=== PATIENT | male | born 1960 | race African-American/Black ===

== ENCOUNTER 2016-09-28 06:12 | Emergency (ER) | payer MEDICARE ==
[~2016-09-28 06:12] MED LIST: ACET500CAP PO; EZFE 200200 MG PO; GLUCPH PO; IBU800 PO; IMDUR60 PO; KDUR20 PO; LEVAQUIN750 MG PO; LOP100 PO; MEVACOR PO; NORV10 PO; VITD PO; ZESTORETIC PO
== END 2016-09-28 06:15 | disposition home or self-care (01) ==
LOC: ER 06:12
DX: H10.9 Unspecified conjunctivitis (principal); J06.9 Acute upper respiratory infection, unspecified; F17.200 Nicotine dependence, unspecified, uncomplicated; E11.9 Type 2 diabetes mellitus without complications; E78.5 Hyperlipidemia, unspecified; I25.10 Atherosclerotic heart disease of native coronary artery without angina pectoris; Z95.5 Presence of coronary angioplasty implant and graft; Z87.01 Personal history of pneumonia (recurrent); I10 Essential (primary) hypertension; Z86.73 Personal history of transient ischemic attack (TIA), and cerebral infarction without residual deficits; Z79.899 Other long term (current) drug therapy; Z79.84 Long term (current) use of oral hypoglycemic drugs
CPT/HCPCS: 71010; 99283; A9270-GY